=== PATIENT | female | born 1995 | race African-American/Black ===

== ENCOUNTER 2017-03-10 12:55 | Emergency (ER) | payer MEDICAID ==
[2017-03-10] MEDS ORDERED: ONDANSETRON 4 MG TAB.RAPDIS PO ONE (14:23)
[2017-03-10] MEDS ORDERED: MECLIZINE HCL 25 MG TABLET PO ONE (14:23)
--- NOTE | 2017-03-10 15:26 | ER Document Report ---
HPI - HPI Patient complains to provider of: dizziness Pain Level: 4 Notes: 21 yr old presents today with complaints of sudden onset dizziness, headache, nausea x 12 hours. She states she suddenly felt dizzy and like the room was spinning. no otc medications tried. denies any fevers or chills. eating and drinking minimally in the last two days. denies any cp, sob, vomiting, diarrhea , blurred vision, double vision or loss of vision. reports seasonal allergies. denies any recent trauma. denies any recent URI or illness. non smoker. reports hx of dizziness in the past. denies any photophobia or phonophobia. - CONSTITUTIONAL Constitutional: DENIES: Fever, Chills - EENT EENT: DENIES: Sore Throat, Ear Pain, Eye problems - NEURO Neurology: REPORTS: Dizzinesss / Vertigo - since yesterday. DENIES: Headache, Weakness, Vision blurred - CARDIOVASCULAR Cardiovascular: DENIES: Chest pain - RESPIRATORY Respiratory: DENIES: Trouble Breathing, Coughing - GASTROINTESTINAL Gastrointestinal: DENIES: Abdominal Pain, Black / Bloody Stools - URINARY Urinary: DENIES: Dysuria, Urgency, Frequency - REPRODUCTIVE Reproductive: DENIES: : - MUSCULOSKELETAL Musculoskeletal: DENIES: Extremity pain - DERM Skin Color: Normal Past Medical History - Social History Smoking Status: Never Smoker Frequency of alcohol use: Social Drug Abuse: None Family History: None Patient has suicidal ideation: No Patient has homicidal ideation: No Renal/ Medical History: Denies: Hx Peritoneal Dialysis - Immunizations Immunizations up to date: Yes Hx Diphtheria, Pertussis, Tetanus Vaccination: Yes Vertical Provider Document - INFECTION CONTROL TRAVEL OUTSIDE OF THE [place] IN LAST 30 DAYS: No - RESPIRATORY O2 Sat by Pulse Oximetry: 100 Course - Re-evaluation Re-evalutation: Rechecked the patient who is resting comfortably. On re-exam, patient is symptomatically improved. Discussed the diagnosis at great length. Discussed the need to return to the ER for any new or worsening sx. Patient understands to take the Rx as directed. All questions answered. Patient comfortable with the decision to go home. - Vital Signs Vital signs: Temp Pulse Resp BP Pulse Ox 98.5 F 87 16 142/95 H 100 03/10/17 13:08 03/10/17 13:08 03/10/17 13:08 03/10/17 13:08 03/10/17 13:08 Discharge - Discharge Clinical Impression: Benign positional vertigo Qualifiers: Laterality: unspecified laterality Qualified Code(s): H81.10 - Benign paroxysmal vertigo, unspecified ear Disposition: HOME, SELF-CARE Instructions: Vertigo ([facility]) Additional Instructions: Follow up with your physician tomorrow for further care or return to the ED IMMEDIATELY if symptoms worsen or new concerns occur. If you cannot afford to follow up with your primary care physician a list of low cost clinics have been provided at the end of your discharge papers as well. Take medications as directed. . Prescriptions: Meclizine HCl [Antivert 25 mg Tablet] 25 mg PO BID #14 tablet Ondansetron [Zofran Odt 4 mg Tablet] 4 mg PO BID #8 tab.mikeldis
[2017-03-10 16:12] VITALS: BP 134/81
== END 2017-03-10 16:05 | disposition home or self-care (01) ==
LOC: ER 12:55
DX: H81.10 Benign paroxysmal vertigo, unspecified ear (principal); R51 Headache; R11.0 Nausea
CPT/HCPCS: 99283; S0119

== ENCOUNTER 2017-12-11 00:39 | Emergency (ER) | payer SELFPAY ==
--- NOTE | 2017-12-11 01:41 | ER Document Report ---
ED General - General Mode of Arrival: Ambulatory Information source: Patient TRAVEL OUTSIDE OF THE [place] IN LAST 30 DAYS: No - General Chief Complaint: Sore Throat Stated Complaint: SORE THROAT Time Seen by Provider: 12/11/17 01:26 Notes: Patient is a 22 year old female presenting to the emergency department complaining of a sore throat onset 2 days ago. Patient states she has been unable to open her mouth wide due to her throat pain and has had decreased appetite. She also complains of pressure behind her ears and a cough. Patient denies a fevers, abdominal pain, nausea or vomiting. (FRANKIE RILEY) - Related Data Allergies/Adverse Reactions: No Known Allergies Allergy (Verified 03/10/17 12:57) Past Medical History - General Information source: Patient - Social History Smoking Status: Unknown if Ever Smoked Family History: None - Immunizations Immunizations up to date: Yes Hx Diphtheria, Pertussis, Tetanus Vaccination: Yes Review of Systems - Review of Systems Constitutional: No symptoms reported EENT: See HPI, Throat pain Cardiovascular: No symptoms reported Respiratory: No symptoms reported Gastrointestinal: See HPI, Poor appetite Genitourinary: No symptoms reported Female Genitourinary: No symptoms reported Musculoskeletal: No symptoms reported Skin: No symptoms reported Hematologic/Lymphatic: No symptoms reported Neurological/Psychological: No symptoms reported -: Yes All other systems reviewed and negative Physical Exam - Vital signs Vitals: Temp Pulse Resp BP Pulse Ox 99 F 92 18 134/87 H 100 12/11/17 00:49 12/11/17 00:49 12/11/17 00:49 12/11/17 00:49 12/11/17 00:49 - Notes Notes: GENERAL: Alert, interacts well. No acute distress. HEAD: Normocephalic, atraumatic. EYES: Pupils equal, round, and reactive to light. Extraocular movements intact. ENT: Oral mucosa moist, tongue midline.Nares patent, no nasal septal hematoma, TM's intacts, no bulging. No trismus. No evidence of mastoiditis. NECK: Full range of motion. Supple. Trachea midline.No cervical adenopathy. LUNGS: Clear to auscultation bilaterally, no wheezes, rales, or rhonchi. No respiratory distress. HEART: Regular rate and rhythm. No murmurs, gallops, or rubs. ABDOMEN: Soft, non-tender. Non-distended. Bowel sounds present in all 4 quadrants. EXTREMITIES: Moves all 4 extremities spontaneously. NEUROLOGICAL: Alert and oriented x3. Normal speech. PSYCH: Normal affect, normal mood. SKIN: Warm, dry, normal turgor. No rashes or lesions noted. (FRANKIE RILEY) Course - Re-evaluation Re-evalutation: 12/11/17 02:07 strep negative, will provide decadron, f/u in 2-3 days if symptoms not improving (ARTURO POOL) - Vital Signs Vital signs: Temp Pulse Resp BP Pulse Ox 98.3 F 88 20 131/67 H 97 12/11/17 02:45 12/11/17 02:45 12/11/17 02:45 12/11/17 02:45 12/11/17 02:45 Discharge - Discharge Clinical Impression: Acute pharyngitis Qualifiers: Pharyngitis/tonsillitis etiology: unspecified etiology Qualified Code(s): J02.9 - Acute pharyngitis, unspecified Condition: Good Disposition: HOME, SELF-CARE Instructions: Sore Throat ([facility]) Additional Instructions: Please seek medical reevaluation in the next 2-3 days if symptoms are not improving Forms: Return to Work Scribe Attestation: 12/11/17 22:06 I personally performed the services described in the documentation, reviewed and edited the documentation which was dictated to the scribe in my presence, and it accurately records my words and actions. (ARTURO POOL) Scribe Documentation - Scribe Written by Scribe:: Frankie Riley, Marge, 12/11/2017 01:43 acting as scribe for :: Daniel
[2017-12-11] MEDS ORDERED: DEXAMETHASONE SOD PHOS INJ 10 MG/1 ML VIAL IM ONE (02:09)
[2017-12-11 02:53] VITALS: BP 131/67
== END 2017-12-11 02:53 | disposition home or self-care (01) ==
LOC: ER 00:39
DX: J02.9 Acute pharyngitis, unspecified (principal); R63.0 Anorexia; R05 Cough
CPT/HCPCS: 99283; 96372; 87070; 87880; J1100

== ENCOUNTER 2019-03-14 20:19 | Emergency (ER) | payer SELFPAY ==
--- NOTE | 2019-03-14 21:52 | ER Document Report ---
ED Medical Screen (RME) - General Stated Complaint: VAGINAL ISSUES Time Seen by Provider: 03/14/19 21:48 TRAVEL OUTSIDE OF THE [place] IN LAST 30 DAYS: No - HPI Notes: 03/14/19 21:51 Patient is a 23-year-old female no significant past medical history presents complaining of vaginal itching, burning with urination over the past week and she started noticing itchy bumps to the area over the past few days. No fever. Patient is sexually active, but states that she does use condoms. I have treated and performed a rapid initial assessment of this patient. A comprehensive ED assessment and evaluation of the patient, analysis of test results and completion of medical decision making process will be conducted by additional ED providers. PHYSICAL EXAMINATION: GENERAL: Well-appearing, well-nourished and in no acute distress. A&Ox4. Answers questions appropriately. - Related Data Allergies/Adverse Reactions: No Known Allergies Allergy (Verified 03/14/19 21:42) Past Medical History Renal/ Medical History: Denies: Hx Peritoneal Dialysis - Immunizations Immunizations up to date: Yes Hx Diphtheria, Pertussis, Tetanus Vaccination: Yes Physical Exam - Vital signs Vitals: Temp Pulse Resp BP Pulse Ox 98.5 F 96 20 130/83 H 99 03/14/19 20:54 03/14/19 20:54 03/14/19 20:54 03/14/19 20:54 03/14/19 20:54 Course - Vital Signs Vital signs: Temp Pulse Resp BP Pulse Ox 98.5 F 96 20 130/83 H 99 03/14/19 20:54 03/14/19 20:54 03/14/19 20:54 03/14/19 20:54 03/14/19 20:54
[2019-03-14 23:30] LABS: APPEARANCE,URINE SLIGHTLY-CLOUDY; BILIRUBIN,URINE NEGATIVE (NEGATIVE); COLOR,URINE AMBER; GLUCOSE, URINE NEGATIVE (NEGATIVE); KETONES,URINE NEGATIVE (NEGATIVE); PROTEIN,URINE 30 mg/dL (NEGATIVE); URINE SPECIFIC GRAVITY 1.026
[2019-03-14 23:42] LABS: T.VAGINALIS (WET MOUNT) NO TRICHOMONAS SEEN; WBCS (WET MOUNT) 3+ WBCS SEEN; YEAST (WET MOUNT) NO YEAST SEEN
[2019-03-14 23:43] LABS: BACTERIA (WET MOUNT) 3+ BACTERIA SEEN; EPITHELIALS (WET MOUNT) 4+ EPITHELIALS SEEN; RBCS (WET MOUNT) 4+ RBCS SEEN
--- NOTE | 2019-03-15 00:36 | ER Document Report ---
ED General - General Chief Complaint: Vaginal Itching Stated Complaint: VAGINAL ISSUES Time Seen by Provider: 03/14/19 21:48 Mode of Arrival: Ambulatory Information source: Patient TRAVEL OUTSIDE OF THE [place] IN LAST 30 DAYS: No - HPI Onset: Other - over the last several days Onset/Duration: Gradual Quality of pain: Burning Severity: Mild Pain Level: 2 Associated symptoms: Other - vaginal discharge, vaginal itching Exacerbated by: Other - urinating Relieved by: Other - nothing Similar symptoms previously: No Recently seen / treated by doctor: No Notes: 23 year old female with no known PMH here for several days of pain with urination, vaginal itching and vaginal irritation. The patient is sexually active and she admits to not always using condoms. The patient denies fevers, chills, sweats, nausea, vomiting, abdominal pain. - Related Data Allergies/Adverse Reactions: No Known Allergies Allergy (Verified 03/14/19 21:42) Past Medical History - General Information source: Patient - Social History Smoking Status: Never Smoker Frequency of alcohol use: Occasional Drug Abuse: None Family History: None Patient has suicidal ideation: No Patient has homicidal ideation: No Renal/ Medical History: Denies: Hx Peritoneal Dialysis - Immunizations Immunizations up to date: Yes Hx Diphtheria, Pertussis, Tetanus Vaccination: Yes Review of Systems - Review of Systems Constitutional: denies: Fever Genitourinary: Burning, Dysuria Female Genitourinary: Vaginal discharge, Other - vaginal itching Physical Exam - Vital signs Vitals: Temp Pulse Resp BP Pulse Ox 98.5 F 96 20 130/83 H 99 03/14/19 20:54 03/14/19 20:54 03/14/19 20:54 03/14/19 20:54 03/14/19 20:54 - Notes Notes: GENERAL: Well-appearing, well-nourished and in no acute distress. HEAD: Atraumatic, normocephalic. EYES: Pupils equal round and reactive to light, extraocular movements intact, sclera anicteric, conjunctiva are normal. ENT: TMs normal, nares patent, oropharynx clear without exudates. Moist mucous membranes. NECK: Normal range of motion, supple without lymphadenopathy or JVD. LUNGS: Breath sounds clear to auscultation bilaterally and equal. No wheezes rales or rhonchi. HEART: Regular rate and rhythm without murmurs, rubs or gallops. ABDOMEN: Soft, nontender, normoactive bowel sounds. No guarding, no rebound. No masses appreciated. : white vaginal discharge, no CMT, no adenxal tenderness EXTREMITIES: Normal range of motion, no pitting or edema. No clubbing or cyanosis. NEUROLOGICAL: Cranial nerves II through XII grossly intact. Normal speech, normal gait. PSYCH: Normal mood, normal affect. SKIN: Warm, Dry, normal turgor, no rashes or lesions noted. Course - Re-evaluation Re-evalutation: 03/15/19 00:52 The patient was found to have a UTI and likely bacterial vaginosis as well. STD testing was pending and patient did not want to wait so patient was empirically treated with Rocephin and Azithro. Will treat patient as an outpatinet with Cipro and Flagyl. - Vital Signs Vital signs: Temp Pulse Resp BP Pulse Ox 98.5 F 96 20 130/83 H 99 03/14/19 20:54 03/14/19 20:54 03/14/19 20:54 03/14/19 20:54 03/14/19 20:54 - Laboratory Laboratory results interpreted by me: 03/14/19 23:10 Urine Protein 30 H Urine Nitrite (Reflex) POSITIVE H Urine Urobilinogen 4.0 H Leukocyte Esterase Rfl SMALL H Urine Ascorbic Acid 40 H Discharge - Discharge Clinical Impression: Bacterial vaginosis UTI (urinary tract infection) Qualifiers: Urinary tract infection type: acute cystitis Hematuria presence: with hematuria Qualified Code(s): N30.01 - Acute cystitis with hematuria Condition: Stable Disposition: HOME, SELF-CARE Instructions: Urinary Tract Infection ([facility]), Vaginosis, Bacterial ([facility]) Additional Instructions: Take antibiotics as prescribed. Follow up with your primary care doctor or another primary care provider if symptoms persist despite treatment. Prescriptions: Sulfamethoxazole/Trimethoprim [Bactrim Ds Tablet] 1 tab PO BID #14 tablet Ciprofloxacin HCl [Cipro 500 mg Tablet] 500 mg PO BID 7 Days #14 tablet
[2019-03-15] MEDS ORDERED: AZITHROMYCIN 250 MG TABLET PO ONE (00:38)
[2019-03-15] MEDS ORDERED: CIPROFLOXACIN HCL 500 MG TABLET PO ONE (00:38)
[2019-03-15] MEDS ORDERED: CEFTRIAXONE INJ 250 MG VIAL IM ONE (00:38)
[2019-03-15] MEDS ORDERED: METRONIDAZOLE 500 MG TABLET PO ONE (00:39)
[2019-03-15] MEDS ORDERED: LIDOCAINE 1% INJ-PF (10 MG/ML) 30 ML SDV ONE (00:59)
[2019-03-15 01:32] VITALS: BP 127/84
[2019-03-15 02:53] LABS: CHLAM PCR NOT DETECTED (NOT DETECT)
== END 2019-03-15 01:35 | disposition home or self-care (01) ==
LOC: ER 20:19
DX: N76.0 Acute vaginitis (principal); B96.89 Other specified bacterial agents as the cause of diseases classified elsewhere; N30.01 Acute cystitis with hematuria
CPT/HCPCS: 99283; 96372; 87086; 87210; 81025; 87088; 81001; 87186; 87491; 87591; J3490; J0696